=== PATIENT | male | born 1995 | race Two or more races ===

== ENCOUNTER 2019-05-12 22:28 | Emergency (ER) | payer OTHER ==
[~2019-05-12] VITALS: Ht 177.8 cm; Wt 99.8 kg
[2019-05-12] MEDS ORDERED: ACETAMINOPHEN 325 MG TAB PO ONE (22:45)
[2019-05-13 02:00] VITALS: BP 118/76
[2019-05-13] MEDS ORDERED: DexAMETHasone SOD PHOS 10MG/1ML VIAL INJ IM ONE (02:00)
[2019-05-13] MEDS ORDERED: ACETAMINOPHEN/CODEINE#3 (300/30mg) TAB PO ONE (02:00)
== END 2019-05-13 03:09 | disposition home or self-care (01) ==
LOC: ER 22:33
DX: J06.9 Acute upper respiratory infection, unspecified (principal)
CPT/HCPCS: 71045; 96372; 99283; J1100